=== PATIENT | male | born 1975 | race Caucasian/White ===

== ENCOUNTER 2024-08-18 03:25 | Emergency (ER) | payer MEDICAID, OTHER ==
[~2024-08-18] VITALS: Ht 170.2 cm; Wt 76.7 kg
[2024-08-18] MEDS ORDERED: AUG875T PO (03:51)
--- NOTE | 2024-08-18 03:53 | ED.PDOC ---
Eye-HPI HPI Comments This is a 49-year-old male presents to the ED chief complaint sore throat x3 days. Reports related symptoms of difficulty swallowing, fever. Denies cough, chest pain, shortness of breath, difficulty breathing, nausea or vomiting. Reports no recent travel or known ill contacts. Chief Complaint: Sore Throat Time Seen by MD: 03:32 Reviewed Notes: Nurses Notes, Medications, Allergies Allergies: Coded Allergies: No Known Drug Allergy (Verified Allergy, Unknown, 08/18/24) Home Meds Active Scripts Amoxicillin & Pot Clavulanate (AUGMENTIN TABLET) 875 Mg Tb, 1 TAB PO BID for 10 Days, #20 TAB Prov:CHANDLER HERNANDEZ COTTON BALER 08/18/24 Information Source: Patient Mode of Arrival: Ambulatory Constitutional: reports: fever; denies: chills, diaphoresis, fatigue, malaise, sweats, weakness, others EENTM: reports: throat pain, throat swelling; denies: blurred vision, double vision, ear bleeding, ear discharge, ear drainage, ear pain, ear ringing, eye pain, eye redness, hearing loss, mouth pain, mouth swelling, nasal discharge, nose bleeding, nose congestion, nose pain, photophobia, tearing, voice changes, others Respiratory: denies: cough, hemoptysis, orthopnea, SOB at rest, shortness of breath, SOB with excertion, stridor, wheezing, others Cardiovascular: denies: chest pain, dizzy spells, diaphoresis, Dyspnea on exertion, edema, irregular heart beat, left arm pain, lightheadedness, palpitations, PND, syncope, others Gastrointestinal: denies: abdomen distended, abdominal pain, blood streaked bowels, constipated, diarrhea, dysphagia, difficulty swallowing, hematemesis, melena, nausea, poor appetite, poor fluid intake, rectal bleeding, rectal pain, vomiting, others Genitourinary: denies: burning, dysuria, flank pain, frequency, hematuria, incontinence, penile discharge, penile sore, pain, testicle pain, testicle swelling, urgency, others Neurological: denies: dizziness, fainting, headache, left sided numbness, left sided weakness, numbness, paresthesia, pre-existing deficit, right sided nu mbness, right sided weakness, seizure, speech problems, tingling, tremors, weakness, others Musculoskeletal: denies: back pain, gout, joint pain, joint swelling, muscle pain, muscle stiffness, neck pain, others Integumetry: denies: bruises, change in color, change in hair/nails, dryness, laceration, lesions, lumps, rash, wounds, others Allergic/Immunocompromised: denies: Difficulty Healing, Frequent Infections, Hives, Itching, others Hematologic/Lymphatic: denies: anemia, blood clots, easy bleeding, easy bruising, swollen glands, others Endocrine: denies: excessive hunger, excessive sweating, excessive thirst, excessive urination, flushing, intolerance to cold, intolerance to heat, unexplained weight gain, unexplained weight loss, others Psychiatric: denies: anxiety, bipolar disorder, depression, hopeless, panic disorder, schizophrenia, sleepless, suicidal, others Physical Exam General Appearance: No Apparent Distress, Normal HEENT: Pharyngeal Erythema, TMs Normal Neck: Full Range of Motion, Non-Tender Respiratory: Lungs Clear, No Respiratory Distress, Normal Breath Sounds Cardiovascular: No Edema, No JVD, No Murmur, No Gallop, Normal Peripheral Pulses, Regular Rate/Rhythm Breast Exam: Deferred Gastrointestinal: Non Tender, Soft Genitalia: Deferred Pelvic: Deferred Rectal: Deferred Extremities: Normal range of motion Musculoskeletal : Apperance: Normal Neurologic: Alert, 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 Was a procedure done?: No EENT DIFF Eye: N/A Sore Throat: Streptococcal X-Ray, Labs, Meds, VS Vital Signs Date Time Temp Pulse Resp B/P (MAP) Pulse Ox O2 Delivery O2 Flow Rate FiO2 08/18/24 04:32 98.8 85 16 132/85 (101) 99 98.8 08/18/24 03:52 99 Room Air 0 08/18/24 03:38 99.0 103 16 150/87 (108) 99 Current Medications Medications (Trade) Dose Ordered Sig/Mel Route Start Time Stop Time Status Last Admin Ceftriaxone Sodium (Rocephin) 1,000 mg ONCE ONCE IM 08/18/24 04:00 08/18/24 04:01 DC 08/18/24 04:01 Dexamethasone Sodium Phosphate (Decadron Injection) 10 mg ONCE ONCE IM 08/18/24 04:00 08/18/24 04:01 DC 08/18/24 04:00 X-Ray, Labs, Meds, VS Comment Patient given Decadron 10 mg IM Rocephin 1 g IM reports improvement requesting discharge at this time. Script Augmentin twice daily times 10 days. Rest increase p.o. fluids with electrolytes [id number] Tylenol or Motrin as needed for pain or fever follow up with her PCP in 2-3 days if no improvement ER precautions given patient indicated understanding agrees with discharge plan of care. Time of 1ST Reevaluation: 18:05 Reevaluation 1ST: Improved Patient Education/Counseling: Diagnosis, Treatment, Prognosis, Need For Follow Up Family Education/Counseling: Prognosis, Need For Follow Up Departure 1 Departure Time of Disposition: 04:00 Impression: Primary Impression: Pharyngitis Qualified Codes: J02.9 - Acute pharyngitis, unspecified Disposition: 01 HOME / SELF CARE / HOMELESS Condition: Stable e-Prescriptions Amoxicillin & Pot Clavulanate (AUGMENTIN TABLET) 875 Mg Tb 1 TAB PO BID for 10 Days, #20 TAB Prov: CHANDLER HERNANDEZ 08/18/24 Discharged With: Self Critical Care Note Critical Care Time?: No Stability Stability form required: CHANDLER Wilson Aug 18, 2024 03:53
[2024-08-18] MEDS: DexAMETHasone SOD PHOS 10MG/1ML VIAL INJ IM ONE (04:00)
[2024-08-18] MEDS: cefTRIAXone SOD 1,000 MG VL IM ONE (04:01)
[2024-08-18 04:32] VITALS: BP 132/85; PULSE 85; RESP 16; TEMP 98.8; O2SAT 99
== END 2024-08-18 04:33 | disposition home or self-care (01) ==
LOC: ER 03:25
DX: J02.9 Acute pharyngitis, unspecified (principal)
CPT/HCPCS: 96372; 99284; J0696; J1100

== ENCOUNTER 2025-03-03 01:07 | Emergency (ER) | payer MEDICAID ==
[~2025-03-03] VITALS: Ht 170.2 cm; Wt 80.9 kg
[2025-03-03 01:28] LABS: Hematocrit 44.7 % (41.0-53.0); Hemoglobin 15.3 g/dL (13.5-17.5); Mean Corpuscular Hemoglobin 29.4 pg (28.0-32.0); Mean Corpuscular Volume 86.0 fL (80.0-100.0); Nucleated Red Blood Cells % 0.0 %
[2025-03-03 01:45] LABS: Alanine Aminotransferase 24 U/L (7-40); Albumin 4.6 g/dL (3.2-4.8); Alkaline Phosphatase 96 U/L (46-116); Anion Gap 8 (5-15); BUN/Creatinine Ratio 18.5 (10.0-20.0); Blood Urea Nitrogen 20 mg/dL (9-23); Calcium 9.9 mg/dL (8.7-10.4); Carbon Dioxide 27 mmol/L (20-31); Chloride 107 mmol/L (98-107); Glucose 98 mg/dL (74-106); Potassium 4.1 mmol/L (3.5-5.1); Sodium 142 mmol/L (136-145); Total Protein 7.3 g/dL (5.7-8.2)
[2025-03-03 01:46] LABS: Bilirubin, Total 0.3 mg/dL (0.2-1.0)
--- NOTE | 2025-03-03 01:50 | ED.PDOC ---
GI ASSESSMENT HPI Comments 49-year-old male with no significant past medical history brought in by family for evaluation of esophageal discomfort. Patient expresses concern over a mass he has felt in his lower central chest area for the last several months. When asked to localize the mass, he points to his xiphoid process. He states he was prompted to come to the ER today due to discomfort in his esophagus, particularly after eating. He states this has been going on for the past 3 days, and is described as a sensation of fullness in the mid esophageal area, as if there is food stuck there. He denies any abdominal pain or tenderness in the area of the reported mass. He denies any fever, nausea, vomiting, diarrhea, constipation or dysuria. Chief Complaint: Abdominal Pain Time Seen by MD: 01:48 Reviewed Notes: Nurses Notes Allergies: Coded Allergies: No Known Drug Allergy (Verified Allergy, Unknown, 08/18/24) Home Meds Active Scripts Omeprazole Magnesium (Omeprazole) 20 Mg Tab, 20 MG PO DAILY, #30 TAB Prov:TIAGO MCBRIDE MD 03/03/25 Information Source: Patient Mode of Arrival: Ambulatory Timing: Months Duration: Intermittent Prehospital treatment: None Quality: Aching Vomitus: None Stool: Normal Severity: Moderate Recent: None Recent Hx of: Abdominal Surgery (Hernia repair) Pain Location: Epigastric Modifying Factors: Nothing Associated sign and symptoms: Abdominal Pain Past Medical History PAST MEDICAL HISTORY: Denies Surgical History: Hernia Repair Surgical History (Other): Left arm surgery Family History Family History: Reviewed,noncontributory to illness Social History Smoker: Non-Smoker Alcohol: Denies ETOH Use Drugs: Denies Drug Use Lives In: Home Constitutional: denies: chills, diaphoresis, fatigue, fever, malaise, sweats, weakness, others EENTM: reports: throat pain; denies: blurred vision, double vision, ear bleeding, ear discharge, ear drainage, ear pain, ear ringing, eye pain, eye redness, hearing loss, mouth pain, mouth swelling, nasal discharge, nose bleeding, nose congestion, nose pain, photophobia, tearing, throat swelling, voice changes, others Respiratory: denies: cough, hemoptysis, orthopnea, SOB at rest, shortness of breath, SOB with excertion, stridor, wheezing, others Cardiovascular: denies: chest pain, dizzy spells, diaphoresis, Dyspnea on exertion, edema, irregular heart beat, left arm pain, lightheadedness, palpitations, PND, syncope, others Gastrointestinal: reports: abdominal pain; denies: abdomen distended, blood streaked bowels, constipated, diarrhea, dysphagia, difficulty swallowing, hematemesis, melena, nausea, poor appetite, poor fluid intake, rectal bleeding, rectal pain, vomiting, others Genitourinary: denies: burning, dysuria, flank pain, frequency, hematuria, incontinence, penile discharge, penile sore, pain, testicle pain, testicle swelling, urgency, others Neurological: denies: dizziness, fainting, headache, left sided numbness, left sided weakness, numbness, paresthesia, pre-existing deficit, right sided numbness, right sided weakness, seizure, speech problems, tingling, tremors, weakness, others Musculoskeletal: denies: back pain, gout, joint pain, joint swelling, muscle pain, muscle stiffness, neck pain, others Integumetry: denies: bruises, change in color, change in hair/nails, dryness, laceration, lesions, lumps, rash, wounds, others Allergic/Immunocompromised: denies: Difficulty Healing, Frequent Infections, Hives, Itching, others Hematologic/Lymphatic: denies: anemia, blood clots, easy bleeding, easy bruising, swollen glands, others Endocrine: denies: excessive hunger, excessive sweating, excessive thirst, excessive urination, flushing, intolerance to cold, intolerance to heat, unexplained weight gain, unexplained weight loss, others Psychiatric: denies: anxiety, bipolar disorder, depression, hopeless, panic disorder, schizophrenia, sleepless, suicidal, others Physical Exam General Appearance: No Apparent Distress HEENT: Other (Pupils and face symmetric. Moist mucous membranes.) Neck: Full Range of Motion, Normal Inspection Respiratory: Chest Non-Tender, Lungs Clear, No Accessory Muscle Use, No Respiratory Distress, Normal Breath Sounds Cardiovascular: No Edema, No JVD, Regular Rate/Rhythm Breast Exam: Deferred Gastrointestinal: Non Tender, Soft, Other (No mass appreciated. Of note, the mass which is of patient's concern is localized to the area of the xiphoid process. Patient has a palpably normal xiphoid process.) Genitalia: Deferred Pelvic: Deferred Rectal: Deferred Extremities: Normal inspection, Normal range of motion, Non-tender, No pedal edema Neurologic: Alert (Oriented x4), Normal Affect, Normal Mood, Other (Ambulatory) Cerebellar Function: NOT DONE Reflexes: NOT DONE Skin: Dry, Normal Color, Warm Lymphatic: NOT DONE Was a procedure done? Was a procedure done?: No GI differential Dx Differential Diagnosis: Diverticular disease, Gastritis/PUD, Gastroenteritis, Hernia, Pancreatitis, UTI, Mass, Other (GERD) X-Ray, Labs, Meds, VS Vital Signs Date Time Temp Pulse Resp B/P (MAP) Pulse Ox O2 Delivery O2 Flow Rate FiO2 03/03/25 04:55 98.0 68 16 143/99 (114) 100 98.0 03/03/25 01:37 98.0 80 16 146/101 (116) 98 98.0 Lab Test 03/03/25 01:20 03/03/25 00:00 Range/Units White Blood Count 6.8 4.4-10.8 10^3/uL Red Blood Count 5.19 4.5-5.90 10^6/uL Hemoglobin 15.3 13.5-17.5 g/dL Hematocrit 44.7 41.0-53.0 % Mean Corpuscular Volume 86.0 80.0-100.0 fL Mean Corpuscular Hemoglobin 29.4 28.0-32.0 pg Mean Corpuscular Hemoglobin Concent 34.2 32.0-36.0 g/dL Red Cell Distribution Width 13.2 11.8-14.3 % Platelet Count 219 140-450 10^3/uL Mean Platelet Volume 8.5 6.9-10.8 fL Neutrophils (%) (Auto) 40.1 37.0-80.0 % Lymphocytes (%) (Auto) 43.1 10.0-50.0 % Monocytes (%) (Auto) 12.1 H 0.0-12.0 % Eosinophils (%) (Auto) 4.0 0.0-7.0 % Basophils (%) (Auto) 0.7 0.0-2.0 % Neutrophils # (Auto) 2.7 1.6-8.6 10 ^3/uL Lymphocytes # (Auto) 2.9 0.4-5.4 10 ^3/uL Monocytes # (Auto) 0.8 0-1.3 10 ^3/uL Eosinophils # (Auto) 0.3 0-0.8 10 ^3/uL Basophils # (Auto) 0 0-0.2 10 ^3/uL Nucleated Red Blood Cells 0.0 % Sodium Level 142 136-145 mmol/L Potassium Level 4.1 3.5-5.1 mmol/L Chloride Level 107 98-107 mmol/L Carbon Dioxide Level 27 20-31 mmol/L Anion Gap 8 5-15 Blood Urea Nitrogen 20 9-23 mg/dL Creatinine 1.08 0.700-1.30 mg/dL Glomerular Filtration Rate Calc 85 >90 mL/min BUN/Creatinine Ratio 18.5 10.0-20.0 Serum Glucose 98 74-106 mg/dL Calcium Level 9.9 8.7-10.4 mg/dL Total Bilirubin 0.3 0.2-1.0 mg/dL Aspartate Amino Transferase (AST) 19 13-40 U/L Alanine Aminotransferase (ALT) 24 7-40 U/L Alkaline Phosphatase 96 46-116 U/L Total Protein 7.3 5.7-8.2 g/dL Albumin 4.6 3.2-4.8 g/dL Lipase 44 12-53 U/L Urine Color Light-yellow Yellow Urine Clarity Clear Clear Urine pH 5.5 5.0-9.0 Urine Specific [place] 1.030 1.001-1.035 Urine Protein Negative Negative Urine Ketones Negative Negative Urine Blood Negative Negative /uL Urine Nitrite Negative Negative Urine Bilirubin Negative Negative Urine Urobilinogen Normal Negative mg/dL Urine Leukocyte Esterase Negative Negative /uL Urine RBC <1 0 - 3 /hpf Urine Microscopic WBC < 1 0-3 /HPF Urine Squamous Epithelial Cells Few <5 /hpf Urine Bacteria None seen None Seen /hpf Urine Mucus Few None Seen Urine Glucose Normal Normal mg/dL Current Medications Medications (Trade) Dose Ordered Sig/Mel Route Start Time Stop Time Status Last Admin Lidocaine HCl (Xylocaine 2% Viscous) 10 ml ONCE ONCE PO 03/03/25 01:45 03/03/25 01:46 DC 03/03/25 04:57 Belladonna Alkaloids/ Phenobarbital ( Elixir) 10 ml ONCE ONCE PO 03/03/25 01:45 03/03/25 01:46 DC 03/03/25 04:57 Al Hydrox/Mg Hydrox/Simethicone (Maalox Plus) 30 ml ONCE ONCE PO 03/03/25 01:45 03/03/25 01:46 DC 03/03/25 04:56 X-Ray, Labs, Meds, VS Comment 49-year-old male with no significant past medical history brought in by family complaining of a mass in his lower chest area and esophageal discomfort with eating Vitals remarkable for BP 146/101 Exam unremarkable Rhythm strip independently interpreted by me: Sinus rhythm, rate 80, no ectopy. CT abdomen and pelvis results pending CBC, CMP, lipase and UA unremarkable for any abnormality of acute significance Patient treated with the following in the ED: Viscous lidocaine 10 mL, 10 mL, Maalox 30 mL p.o. On re-evaluation, patient is asymptomatic with stable vitals. What patient believed was a mass in his lower chest area is actually a normal xiphoid process. His symptoms are likely due to GERD. If CT unremarkable, patient can be discharged with close outpatient follow-up with his primary physician. Rx omeprazole At 5:21 a.m., patient stated he did not want to wait for CT results. He was advised of the risks of leaving including missed life-threatening condition. He expressed understanding and stated he would prefer to go home now and return later to obtain CT results. He signed out against medical advice. He was alert, oriented x4 and capable of making informed decisions at the time he signed out. Time of 1ST Reevaluation: 01:44 Reevaluation 1ST: Unchanged Patient Education/Counseling: Diagnosis, Treatment Family Education/Counseling: Diagnosis, Treatment SEPSIS Sepsis Screen Date sepsis recognized/suspect: Mar 03, 2025 Time Sepsis recognized/suspect: 013 Recent Procedure: No On Antibiotic Therapy: No Respiratory Rate >20: No Heart Rate >90: No Temp<36 C (96.8 F) or >38.3 C: No SBP <90 or MAP <65 mmHG: No New Acute Mental Status Change: No Is the patient on CPAP, BIPAP,: No Physician Orders Ct Ab Pel Wo Con-No Oral Or Iv (03/03/25 01:33) Vital Signs Date Time Temp Pulse Resp B/P (MAP) Pulse Ox O2 Delivery O2 Flow Rate FiO2 03/03/25 04:55 98.0 68 16 143/99 (114) 100 98.0 03/03/25 01:37 98.0 80 16 146/101 (116) 98 98.0 Laboratory Tests Test 03/03/25 01:20 White Blood Count 6.8 10^3/uL (4.4-10.8) Medications Medications Dose Ordered Sig/Mel Route Start Time Stop Time Status Last Admin Dose Admin Al Hydrox/Mg Hydrox/Simethicone 30 ml ONCE ONCE PO 03/03/25 01:45 03/03/25 01:46 DC 03/03/25 04:56 Belladonna Alkaloids/ Phenobarbital 10 ml ONCE ONCE PO 03/03/25 01:45 03/03/25 01:46 DC 03/03/25 04:57 Lidocaine HCl 10 ml ONCE ONCE PO 03/03/25 01:45 03/03/25 01:46 DC 03/03/25 04:57 Departure 1 Departure Time of Disposition: 04:00 Impression: Primary Impression: GERD (gastroesophageal reflux disease) Disposition: LEFT AGAINST MEDICAL ADVICE Condition: Stable Additional Instructions: Your blood and urine tests were normal. Your CT scan result is still pending. The mass you are feeling in your lower chest area is a normal part of your sternum called the xiphoid process. Your symptoms are likely due to acid reflux. I have prescribed medication to treat your symptoms. Follow-up with your primary doctor in 1-2 days. Return to ER for persistent or worsening symptoms. e-Prescriptions Omeprazole Magnesium (Omeprazole) 20 Mg Tab 20 MG PO DAILY, #30 TAB Prov: TIAGO MCBRIDE MD 03/03/25 Discharged With: Relative Critical Care Note Critical Care Time?: No Stability Stability form required: No Heart Score Heart Score: Heart Score Response (Comments) Value History N/A 0 EKG N/A 0 Age N/A 0 Risk Factors N/A 0 Troponin N/A 0 Total 0 I personally scribed for TIAOG MCBRIDE MD ([email or web address]) on 03/03/25 at 01:50. Electronically submitted by Chidi Dumont ([email or web address]). TIAGO MCBRIDE MD Mar 03, 2025 01:50
[2025-03-03 02:06] LABS: Lipase 44 U/L (12-53)
[2025-03-03 02:49] LABS: Urine Protein, UAD Negative (Negative)
[2025-03-03] MEDS ORDERED: OMEP-434 PO (03:36)
[2025-03-03 04:55] VITALS: BP 143/99; PULSE 68; RESP 16; TEMP 98; O2SAT 100
[2025-03-03] MEDS: MAALOX PLUS or MAALOX 30 ML PO ONE (04:56)
[2025-03-03] MEDS: LIDOCAINE VISCOUS 2% 15ML UD PO ONE (04:57)
[2025-03-03] MEDS: DONNATAL 5ml ORAL Elix (BELLADONNA ALK-PHENOBARB) PO ONE (04:57)
--- NOTE | 2025-03-03 05:19 | DVH ---
EXAM: CT CT AB PEL WO CON-NO ORAL OR IV HISTORY: epigastric mass COMPARISON: None TECHNIQUE: Helical CT images of the abdomen and pelvis were performed without IV contrast. Sagittal a nd coronal reformatted images were obtained. This CT exam was performed using one or more of the foll owing dose reduction techniques: Automated exposure control, adjustment of the mA and/or kv according to patient size, or the use of iterative reconstruction techniques. Radiation Dose: Abdomen/Pelvis: CTDIvol 8.58 mGy, DLP 460.74 mGy*cm. FINDINGS: CT abdomen: There is mild scarring or atelectasis in the lung bases. The heart is not enlarged. There is a right renal inferior pole 2 mm nonobstructing calculus. The noncontrast liver, spleen, gallblad dwaine, pancreas, left kidney, and lateral adrenal glands are unremarkable. No abdominal aortic aneurysm . There is a small fatty umbilical hernia. No upper abdominal masses are visualized here. CT pelvis: No abnormal bowel dilatation, free air, or free fluid. The appendix and urinary bladder ar e unremarkable. The prostate is borderline enlarged. IMPRESSION: 1. Nonobstructing right nephrolithiasis. 2. No evidence of bowel obstruction, acute appendicitis, or other acute process in the abdomen or pel vis.
== END 2025-03-03 05:23 | disposition left against medical advice (07) ==
LOC: ER 01:07
DX: K21.9 Gastro-esophageal reflux disease without esophagitis (principal); Z98.890 Other specified postprocedural states
CPT/HCPCS: 36415; 74176; 80053; 81001; 83690; 85025